=== PATIENT | female | born 1960 | race Caucasian/White ===

== ENCOUNTER → 2025-07-01 09:36 | Outpatient (REF) | payer MEDICARE, BC, SELFPAY | LOC: RAD 09:36 | PROVIDERS: ATTENDING PHYSICIAN Hospitalist | DX: M81.0 Age-related osteoporosis without current pathological fracture (principal); Z12.31 Encounter for screening mammogram for malignant neoplasm of breast | CPT/HCPCS: 77080 ==

== ENCOUNTER → 2025-07-05 15:35 | Outpatient (REF) | payer MEDICARE, BC, SELFPAY | LOC: WDC 15:35 | PROVIDERS: ATTENDING PHYSICIAN Hospitalist | DX: Z12.31 Encounter for screening mammogram for malignant neoplasm of breast (principal) | CPT/HCPCS: 77063; 77067 ==